=== PATIENT | male | born 1970 | race African-American/Black ===

== ENCOUNTER 2025-03-17 08:56 | Inpatient (IN) | payer MEDICAID ==
[~2025-03-17] VITALS: Ht 172.7 cm; Wt 105.9 kg
[2025-03-17] VITALS (51 sets, daily range): BP systolic 127–200; BP diastolic 60–151; PULSE 75–127; RESP 16–25; TEMP 38–39.6; O2SAT 92–100
[~2025-03-17 08:56] MED LIST: ETOMIDATE 2MG/ML 10ML VIAL IV ONE
[2025-03-17] MEDS: ROCURONIUM BROMIDE 10MG/ML VIAL 5ML IV ONE (09:15)
[2025-03-17] MEDS: SODIUM CHLORIDE 0.9% (SEPSIS BOLUS) IV ONE (09:18)
[2025-03-17] MEDS: VANCOMYCIN 1G PREMIX 200 ML IV SCH (09:19)
[2025-03-17 09:22] LABS: BASOPHILS % 0.5 % (0.0-2.0); EOSINOPHILS % 0.5 % (0.0-5.0); HEMATOCRIT. 48.8 % (42.0-52.0); HEMOGLOBIN. 16.4 g/dL (14.0-18.0); LYMPHOCYTES % 48.2 % (20.0-50.0); MEAN CORPUSCULAR HEMOGLOBIN 31.9 pg (28.0-32.0); MEAN CORPUSCULAR HGB CONC 33.5 g/dL (31.0-37.0); MEAN CORPUSCULAR VOLUME 95.2 fL (80.0-94.0); MEAN PLATELET VOLUME 9.2 fl (7.4-10.4); NEUTROPHILS % 44.8 % (40.0-76.0); PLATELET 329 x1000/uL (130-400); RED BLOOD CELL COUNT 5.13 mill/uL (4.7-6.1); RED CELL DISTRIBUTION WIDTH 15.5 % (11.6-14.6); WHITE BLOOD COUNT 12.5 x1000/uL (4.5-11.0)
[2025-03-17] MEDS: PROPOFOL 10MG/ML 100ML 100 ML IV ONE (09:36)
[2025-03-17 09:39] LABS: CHLORIDE 105 mEq/L (98-107); SODIUM 137 mEq/L (136-145)
[2025-03-17 09:40] LABS: CALCIUM 8.9 mg/dL (8.7-10.4); CARBON DIOXIDE 22 mEq/L (21-32)
[2025-03-17 09:45] LABS: CREATININE 1.5 mg/dL (0.6-1.3); GLUCOSE 291 mg/dL (70-105); UREA NITROGEN BLOOD 22 mg/dL (9-23)
[2025-03-17 09:46] LABS: ETHANOL BLOOD < 10 mg/dL (<10)
[2025-03-17 09:47] LABS: ALANINE AMINOTRANSFERASE 47 IU/L (10-49); ALBUMIN 4.6 g/dL (3.2-4.8); ASPARTATE AMINOTRANSFERASE 88 IU/L (<34); BILIRUBIN DIRECT 0.2 mg/dL (<=3.0); BILIRUBIN TOTAL 0.8 mg/dL (0.1-1.0); PROTEIN TOTAL 8.1 g/dL (6.0-8.3); TROPONIN I HIGH SENSITIVITY 22 ng/L (3.0-53)
[2025-03-17 10:10] LABS: POTASSIUM 6.5 mEq/L (3.5-5.1)
[2025-03-17 10:32] LABS: BG BASE EXCESS -8.8 mmol/L (-2.0-3.0); BG CARBOXYHEMOGLOBIN 0.6 % (0.5-1.5); BG DEOXYHEMOGLOBIN 13.1 % (0.0-5.0); BG FRACTION INSPIRED OXYGEN 100; BG HCO3 ACT 21.8 mmol/L (21.0-28.0); BG METHEMOGLOBIN 0.1 % (0.5-1.5); BG OXYGEN SATURATION 86.8 % (94.0-98.0); BG OXYHEMOGLOBIN 86.2 % (94.0-98.0); BG PCO2 68.1 mmHg (35.0-48.0); BG PH 7.124 (7.350-7.450); BG PO2 66.7 mmHg (83.0-108.0); BG SAMPLE SITE RIGHT RADIAL; BG TOTAL HEMOGLOBIN 15.7 g/dL (13.5-17.5); BG VENT MODE VENT - AC
[2025-03-17] MEDS: NICARDIPINE 40MG/200ML PREMIX 200 ML IV PRN (10:56)
[2025-03-17 11:08] LABS: PROTHROMBIN TIME 11.2 sec (9.6-11.0)
[2025-03-17 11:21] LABS: CREATININE 1.7 mg/dL (0.6-1.3)
[2025-03-17 11:22] LABS: POTASSIUM 3.4 mEq/L (3.5-5.1)
[2025-03-17 11:39] LABS: LACTIC ACID 2.4 mmol/L (0.4-2.0); TROPONIN I HIGH SENSITIVITY 71 ng/L (3.0-53)
[2025-03-17] MEDS ORDERED: GUAIFENESIN 200MG/10ML SUGAR FREE UDC PO PRN (12:00)
[2025-03-17] MEDS ORDERED: DOCUSATE SODIUM 100MG CAPSULE PO PRN (12:00)
[2025-03-17] MEDS ORDERED: IPRATROPIUM/ALBUTEROL 0.5-3(2.5)MG/3ML NEB HHN PRN (12:00)
[2025-03-17] MEDS ORDERED: CLONIDINE 0.1MG TABLET PO PRN (12:00)
[2025-03-17 12:14] LABS: CLARITY URINE CLEAR (CLEAR); COLOR URINE YELLOW (YELLOW); GLUCOSE URINE TRACE (NEGATIVE); KETONES URINE NEGATIVE (NEGATIVE); LEUKOCYTE ESTERASE URINE NEGATIVE (NEGATIVE); NITRITE URINE NEGATIVE (NEGATIVE); OCCULT BLOOD URINE 1+ (NEGATIVE); PH URINE 6.5 (4.5-8.0); PROTEIN URINE 3+ (NEGATIVE)
[2025-03-17 12:30] LABS: *AMPHETAMINES SCREEN URINE NEGATIVE (NEGATIVE); *BARBITURATES SCREEN URINE NEGATIVE (NEGATIVE); *BENZODIAZEPINES SCREEN URINE NEGATIVE (NEGATIVE); *COCAINE SCREEN URINE NEGATIVE (NEGATIVE); CANNABINOID URINE SCREEN NEGATIVE (NEGATIVE); METHADONE URINE SCREEN NEGATIVE (NEGATIVE); OPIATES URINE SCREEN NEGATIVE (NEGATIVE); PHENCYCLIDINE URINE SCREEN NEGATIVE (NEGATIVE)
[2025-03-17 12:31] LABS: ECSTASY MDMA SCREEN URINE NEGATIVE (NEGATIVE)
[2025-03-17 12:33] LABS: ALBUMIN 3.5 g/dL (3.2-4.8)
[2025-03-17] MEDS: DEXT 5%/LACTATED RINGERS 1,000 ML IV SCH (12:42)
[2025-03-17 12:46] LABS: SQUAMOUS EPITHELIAL CELL URINE RARE /lpf (RARE/1+)
[2025-03-17 12:47] LABS: BACTERIA URINE 1+; RBC URINE 0-2 /hpf (0-2)
[2025-03-17] MEDS ORDERED: PIPERACILLIN/TAZO 3.375G/50ML 50 ML IV SCH (14:00)
[2025-03-17] MEDS ORDERED: IOHEXOL-350 100 ML BOTTLE ONE (14:50)
[2025-03-17] MEDS ORDERED: NICARDIPINE 100 MG in SODIUM CHLORIDE 0.9% 60 ML IV PRN (15:15)
[2025-03-17] MEDS ORDERED: NICARDIPINE 50 MG in SODIUM CHLORIDE 0.9% 230 ML IV PRN (15:30)
[2025-03-17] MEDS: NICARDIPINE 40 MG/200 ML PREMIX 200 ML IV PRN (16:03)
[2025-03-17] MEDS: ACETAMINOPHEN 1000MG/100ML 100 ML IV PRN (16:54)
[2025-03-17] MEDS: PANTOPRAZOLE SODIUM 40 MG/VIAL IV NR (18:44)
[2025-03-17] MEDS: DEXT 5%/0.45% NACL 1000ML 1,000 ML IV SCH (18:44)
[2025-03-17] MEDS: ONDANSETRON HCL 4MG/2ML INJ IV PRN (20:04)
[2025-03-17] MEDS: HYDRALAZINE 20MG/ML VIAL IV PRN (20:04)
[2025-03-17] MEDS: IPRATROPIUM/ALBUTEROL 0.5-3(2.5)MG/3ML NEB HHN SCH (20:11)
[2025-03-17] MEDS ORDERED: LEVETIRACETAM 1000MG PREMIX 100 ML IV SCH (21:00)
[2025-03-17] MEDS: PROPOFOL 10MG/ML 100ML 100 ML IV SCH (22:23)
[2025-03-17 22:30] LABS: BG BASE EXCESS -1.8 mmol/L (-2.0-3.0); BG CARBOXYHEMOGLOBIN 0.8 % (0.5-1.5); BG DEOXYHEMOGLOBIN 0.2 % (0.0-5.0); BG FRACTION INSPIRED OXYGEN 100; BG HCO3 ACT 26.4 mmol/L (21.0-28.0); BG METHEMOGLOBIN 0.5 % (0.5-1.5); BG OXYGEN SATURATION 99.8 % (94.0-98.0); BG OXYHEMOGLOBIN 98.5 % (94.0-98.0); BG PCO2 58.9 mmHg (35.0-48.0); BG PO2 283.9 mmHg (83.0-108.0); BG SAMPLE SITE RIGHT RADIAL; BG TOTAL HEMOGLOBIN 15.8 g/dL (13.5-17.5); BG VENT MODE VENT - AC
[2025-03-17] MEDS: PIPERACILLIN/TAZO 3.375G/50ML 50 ML IV SCH (23:13)
[2025-03-17] MEDS: VANCOMYCIN 1.25GM/250ML 250 ML IV SCH (23:16)
[2025-03-18] VITALS (103 sets, daily range): BP systolic 106–192; BP diastolic 55–95; PULSE 70–135; RESP 12–23; TEMP 36.4–39.7; O2SAT 77–100
[2025-03-18] MEDS: PANTOPRAZOLE SODIUM 40 MG/VIAL IV SCH (09:00)
[2025-03-18] MEDS ORDERED: PANTOPRAZOLE SODIUM 40 MG/VIAL IV SCH (09:00)
[2025-03-18] MEDS: NICARDIPINE 50 MG in SODIUM CHLORIDE 0.9% 230 ML IV PRN (10:32)
[2025-03-18] MEDS ORDERED: NICARDIPINE 50 MG in SODIUM CHLORIDE 0.9% 230 ML IV PRN (13:45)
[2025-03-18] MEDS ORDERED: ACETAMINOPHEN 1000MG/100ML 100 ML IV PRN (15:15)
[2025-03-18] MEDS ORDERED: ACETAMINOPHEN 1000MG/100ML 100 ML IV SCH (15:15)
[2025-03-18] MEDS ORDERED: PROPOFOL 10MG/ML 100ML 100 ML IV PRN (17:15)
[2025-03-18] MEDS: VANCOMYCIN 1.25GM/250ML IV SCH (21:34)
[2025-03-18] MEDS: PROPOFOL 10MG/ML 100ML 100 ML IV PRN (23:02)
[2025-03-19] VITALS (104 sets, daily range): BP systolic 128–163; BP diastolic 59–79; PULSE 101–129; RESP 12–27; TEMP 37.7–37.8; O2SAT 95–100
[2025-03-19 05:47] LABS: HEMATOCRIT. 41.6 % (42.0-52.0); HEMOGLOBIN. 13.8 g/dL (14.0-18.0); MEAN CORPUSCULAR HEMOGLOBIN 31.5 pg (28.0-32.0); MEAN CORPUSCULAR HGB CONC 33.1 g/dL (31.0-37.0); MEAN CORPUSCULAR VOLUME 95.2 fL (80.0-94.0); MEAN PLATELET VOLUME 8.4 fl (7.4-10.4); PLATELET 175 x1000/uL (130-400); RED BLOOD CELL COUNT 4.37 mill/uL (4.7-6.1)
[2025-03-19 05:50] LABS: CHLORIDE 105 mEq/L (98-107); POTASSIUM 3.5 mEq/L (3.5-5.1); SODIUM 140 mEq/L (136-145)
[2025-03-19 05:51] LABS: CALCIUM 8.7 mg/dL (8.7-10.4); CARBON DIOXIDE 26 mEq/L (21-32)
[2025-03-19 05:54] LABS: DIFFERENTIAL COMMENT 1
[2025-03-19 05:56] LABS: CREATININE 1.2 mg/dL (0.6-1.3); GLUCOSE 136 mg/dL (70-105); TRIGLYCERIDE 143 mg/dL (0-150); UREA NITROGEN BLOOD 12 mg/dL (9-23)
[2025-03-19] MEDS: ACETAMINOPHEN 325MG TABLET PO PRN ×2 (09:28→22:02)
[2025-03-19 10:47] LABS: BG BASE EXCESS -3.6 mmol/L (-2.0-3.0); BG CARBOXYHEMOGLOBIN 0.3 % (0.5-1.5); BG DEOXYHEMOGLOBIN 0.5 % (0.0-5.0); BG FRACTION INSPIRED OXYGEN 100; BG HCO3 ACT 22.6 mmol/L (21.0-28.0); BG METHEMOGLOBIN 0.8 % (0.5-1.5); BG OXYGEN SATURATION 99.5 % (94.0-98.0); BG OXYHEMOGLOBIN 98.4 % (94.0-98.0); BG PCO2 45.2 mmHg (35.0-48.0); BG PH 7.317 (7.350-7.450); BG PO2 378.6 mmHg (83.0-108.0); BG SAMPLE SITE LEFT RADIAL; BG TOTAL HEMOGLOBIN 14.5 g/dL (13.5-17.5); BG VENT MODE VENT - AC
[2025-03-19 11:07] LABS: BG BASE EXCESS -2.8 mmol/L (-2.0-3.0); BG CARBOXYHEMOGLOBIN 0.5 % (0.5-1.5); BG FRACTION INSPIRED OXYGEN 44; BG HCO3 ACT 28.5 mmol/L (21.0-28.0); BG METHEMOGLOBIN 0.5 % (0.5-1.5); BG PCO2 83.4 mmHg (35.0-48.0); BG PH 7.151 (7.350-7.450); BG PO2 561.7 mmHg (83.0-108.0); BG SAMPLE SITE LEFT RADIAL; BG TOTAL HEMOGLOBIN 14.8 g/dL (13.5-17.5); BG VENT MODE APNEA TEST
[2025-03-19 11:17] LABS: PLATELET ESTIMATE NORMAL
[2025-03-19] MEDS: VANCOMYCIN 1.5GM/250ML IV SCH (15:09)
[2025-03-20] VITALS (86 sets, daily range): BP systolic 51–170; BP diastolic 32–87; PULSE 75–117; RESP 12–22; TEMP 97.4–100.8; O2SAT 10–100
[2025-03-20 06:10] LABS: CHLORIDE 105 mEq/L (98-107); POTASSIUM 3.4 mEq/L (3.5-5.1); SODIUM 140 mEq/L (136-145)
[2025-03-20 06:11] LABS: CALCIUM 8.4 mg/dL (8.7-10.4); CARBON DIOXIDE 25 mEq/L (21-32)
[2025-03-20 06:16] LABS: CREATININE 1.1 mg/dL (0.6-1.3); GLUCOSE 127 mg/dL (70-105); UREA NITROGEN BLOOD 11 mg/dL (9-23)
[2025-03-20] MEDS: NICARDIPINE 40MG/200ML PREMIX 200 ML IV PRN (07:42)
[2025-03-20] MEDS: NOREPINEPHRINE 8MG/250ML PMX 250 ML IV PRN (10:05)
[2025-03-20] MEDS ORDERED: MORPHINE SULFATE 2 MG/ML INJ (NOT FOR IM USE) IV PRN (14:30)
[2025-03-20] MEDS ORDERED: LORAZEPAM 2MG/ML UD SYRINGE IV PRN (14:30)
[2025-03-20] MEDS ORDERED: NALOXONE HCL 0.4MG/ML VIAL IV PRN (14:45)
== END 2025-03-20 23:00 | DRG 45 ==
LOC: ER 08:56 → MICUSO 11:40 → EDBEDREQ 11:50 → EDBEDREQTM 11:50 → ENRESERV 12:00
PROVIDERS: ADMIT Hospitalist; ATTEND Hospitalist
PROC: 5A1945Z Respiratory Ventilation, 24-96 Consecutive Hours (ICD-10-PCS; principal; 2025-03-17)
PROC: 0BH17EZ Insertion of Endotracheal Airway into Trachea, Via Natural or Artificial Opening (ICD-10-PCS; 2025-03-17)
DX: I63.81 Other cerebral infarction due to occlusion or stenosis of small artery (principal); I61.3 Nontraumatic intracerebral hemorrhage in brain stem; J96.01 Acute respiratory failure with hypoxia; G93.41 Metabolic encephalopathy; E87.29 Other acidosis; R65.10 Systemic inflammatory response syndrome (SIRS) of non-infectious origin without acute organ dysfunction; E87.20 Acidosis, unspecified; I61.5 Nontraumatic intracerebral hemorrhage, intraventricular; I16.1 Hypertensive emergency; D64.9 Anemia, unspecified; I11.9 Hypertensive heart disease without heart failure; I21.A1 Myocardial infarction type 2; I46.9 Cardiac arrest, cause unspecified; E78.5 Hyperlipidemia, unspecified; E87.6 Hypokalemia; J96.02 Acute respiratory failure with hypercapnia; Z66 Do not resuscitate; Z79.899 Other long term (current) drug therapy
CPT/HCPCS: 31500; 31720; 36415; 36600; 70496; 70498; 71045; 80048; 80061; 80076; 80202; 80305; 80320; 81003; 82040; 82375; 82805; 83036; 83605; 83880; 84132; 84145; 84478; 84484; 85025; 86850; 86900; 87077; 92950; 93005; 93970; 94002; 94003; 94070; 94640; 94664; 98960; 99291; A4606; J0360; J2060; J2270; J2405; J2470; J2543; J2704; J3370; J3490; J7030; J7050; Q9967; G0480; J0131